=== PATIENT | female | born 1935 | race Caucasian/White ===

== ENCOUNTER → 2019-01-18 | Outpatient (CLI) | payer OTHER ==
[2019-01-18 09:22] LABS: ALBUMIN 3.8 gm/dl (3.1-4.5); ALKALINE PHOSPHATASE 96 U/L (45-117); BUN 18 mg/dl (7-24); CHLORIDE 105 mmol/L (98-107); POTASSIUM 3.6 mmol/L (3.5-5.1); SGOT/AST 39 IU/L (3-35); SODIUM 141 mmol/L (136-145)
[2019-01-18 09:34] LABS: CHOLESTEROL 147 mg/dL (<200); CREATININE 1.02 mg/dL (0.55-1.02); HDL CHOLESTEROL 47 mg/dl (40-60); LDL CHOLESTEROL 73 mg/dL (9-159); SGPT/ALT 39 U/L (12-78); TRIGLYCERIDES 134 mg/dl (<150); VLDL CHOLESTEROL 27 mg/dL (6-40)
== END | disposition home or self-care (01) ==
LOC: LAB 08:23
PROVIDERS: Internal Medicine
DX: E11.65 Type 2 diabetes mellitus with hyperglycemia (principal); E78.5 Hyperlipidemia, unspecified; I10 Essential (primary) hypertension

== ENCOUNTER → 2019-04-22 | Outpatient (CLI) | payer OTHER ==
[2019-04-22 10:17] LABS: HEMATOCRIT 43.3 % (37.0-47.0); HEMOGLOBIN 13.8 g/dl (12.0-16.0); MEAN CELL VOLUME 91.5 fl (81.0-99.0); MEAN CORPUSCULAR HGB 29.2 pg (27.0-31.0); MEAN CORPUSCULAR HGB CONC 31.9 g/dl (33.0-37.0); MEAN PLATELET VOLUME 10.1 fl (9.6-12.3); RED BLOOD COUNT 4.73 10*6/uL (4.10-5.10); RED CELL DISTRI WIDTH 13.9 % (0-14.5); WHITE BLOOD COUNT 12.9 10*3/uL (4.8-10.8)
[2019-04-22 10:35] LABS: ALBUMIN 3.8 gm/dl (3.1-4.5); CREATININE 1.12 mg/dL (0.55-1.02); POTASSIUM 3.8 mmol/L (3.5-5.1); TOTAL PROTEIN 8.3 gm/dL (6.4-8.2)
[2019-04-22 10:44] LABS: THYROID STIM HORMONE (HS) 8.2 uIU/ml (0.358-4.75)
== END | disposition home or self-care (01) ==
LOC: LAB 09:55
PROVIDERS: Internal Medicine
DX: I12.9 Hypertensive chronic kidney disease with stage 1 through stage 4 chronic kidney disease, or unspecified chronic kidney disease (principal); E11.22 Type 2 diabetes mellitus with diabetic chronic kidney disease; N18.3 Chronic kidney disease, stage 3 (moderate)

== ENCOUNTER → 2020-03-10 | Outpatient (CLI) | payer OTHER ==
[2020-03-10 09:39] LABS: HEMATOCRIT 42.8 % (37.0-47.0); MEAN CELL VOLUME 91.8 fl (81.0-99.0); MEAN CORPUSCULAR HGB 29.6 pg (27.0-31.0); MEAN CORPUSCULAR HGB CONC 32.2 g/dl (33.0-37.0); MEAN PLATELET VOLUME 10.7 fl (9.6-12.3); RED BLOOD COUNT 4.66 10*6/uL (4.10-5.10); WHITE BLOOD COUNT 12.4 10*3/uL (4.8-10.8)
[2020-03-10 10:13] LABS: ALBUMIN 3.7 gm/dl (3.1-4.5); CREATININE 1.09 mg/dL (0.55-1.02); POTASSIUM 4.2 mmol/L (3.5-5.1); TOTAL PROTEIN 8.2 gm/dL (6.4-8.2)
[2020-03-10 10:21] LABS: THYROID STIM HORMONE (HS) 6.92 uIU/ml (0.358-4.75)
== END | disposition home or self-care (01) ==
LOC: LAB 09:02
PROVIDERS: ATTEND Internal Medicine
DX: E11.9 Type 2 diabetes mellitus without complications (principal); K21.9 Gastro-esophageal reflux disease without esophagitis; I10 Essential (primary) hypertension; E78.5 Hyperlipidemia, unspecified

== ENCOUNTER → 2020-10-31 | Outpatient (CLI) | payer OTHER ==
[2020-10-31 08:59] LABS: HEMATOCRIT 43.2 % (37.0-47.0); MEAN CELL VOLUME 91.5 fl (81.0-99.0); MEAN CORPUSCULAR HGB 30.1 pg (27.0-31.0); MEAN CORPUSCULAR HGB CONC 32.9 g/dl (33.0-37.0); MEAN PLATELET VOLUME 10.4 fl (9.6-12.3); RED BLOOD COUNT 4.72 10*6/uL (4.10-5.10); RED CELL DISTRI WIDTH 14.6 % (0-14.5); WHITE BLOOD COUNT 13.7 10*3/uL (4.8-10.8)
[2020-10-31 09:15] LABS: ALBUMIN 3.8 gm/dl (3.1-4.5); CREATININE 1.31 mg/dL (0.55-1.02); TOTAL PROTEIN 8.3 gm/dL (6.4-8.2)
[2020-10-31 09:23] LABS: THYROID STIM HORMONE (HS) 6.3 uIU/ml (0.358-4.75)
== END | disposition home or self-care (01) ==
LOC: LAB 08:34
PROVIDERS: ATTEND Internal Medicine
DX: E78.5 Hyperlipidemia, unspecified (principal); E11.42 Type 2 diabetes mellitus with diabetic polyneuropathy; I10 Essential (primary) hypertension